=== PATIENT | female | born 1980 | race Caucasian/White ===

== ENCOUNTER 2021-01-08 20:01 | Emergency (ER) | payer SELFPAY ==
[2021-01-08 20:12] VITALS: BP 202/120; PULSE 84; RESP 16; TEMP 36.6; O2SAT 96; BMI 20.9
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
[2021-01-08 22:32] VITALS: BP 197/130; PULSE 75; RESP 18; O2SAT 99
[2021-01-08] MEDS: metoprolol tartrate 50 mg Tablet PO (22:47)
[2021-01-08] MEDS: lisinopril 10 mg Tablet 20 MG PO (22:47)
[2021-01-08 23:19] VITALS: BP 166/112; PULSE 72; RESP 18; O2SAT 99
[2021-01-09 00:01] VITALS: BP 166/112; PULSE 88; RESP 16; O2SAT 97
== END 2021-01-09 00:02 | disposition home or self-care (01) ==
PROVIDERS: Emergency Provider Emergency Medicine; PCP Family Medicine
DX: S00.83XA Contusion of other part of head, initial encounter (principal); Y04.8XXA Assault by other bodily force, initial encounter
CPT/HCPCS: 70160; 99283

== ENCOUNTER 2021-12-11 15:17 | Emergency (ER) | payer MEDICAID, SELFPAY ==
[2021-12-11 15:26] VITALS: BP 186/111; PULSE 85; RESP 18; TEMP 37.4; O2SAT 100; BMI 22.6
--- NOTE | 2021-12-11 16:36 | ED_ITS ---
HPI - Female Genitourinary General: Chief complaint: Urogenital-Female Stated complaint: urinary problem/ulcer Time Seen by Provider: 12/11/21 16:09 History of Present Illness: Date of Last Menstrual Period: 12/15/20 COUNTS INCLUDE 234 BEDS AT THE [facility] ED PFSH: Medical History (Updated 12/04/21 @ 16:05 by WILLIAM Sepulveda) Hand abrasion, infected Female Reproductive History: Date of last menstrual period: 12/15/20 Course Vital Signs: Vital signs: Vital Signs Temperature 99.3 F 12/11/21 15:26 Pulse Rate 85 12/11/21 15:26 Respiratory Rate 18 12/11/21 15:26 Blood Pressure 186/111 12/11/21 15:26 Pulse Oximetry 100 12/11/21 15:26 Discharge Plan Discharge Condition: Stable Prescriptions: No Action amlodipine 10 mg tablet PO 0RF sertraline 25 mg tablet 50 mg PO DAILY 0RF metoprolol tartrate 100 mg tablet 100 mg PO BID 0RF valacyclovir 1 gram tablet PO 0RF clonazepam 0.5 mg tablet PO 0RF lidocaine 5 % cream 1 applic topical TID PRN (Reason: pain) Qty: 30 0RF clindamycin HCl 300 mg capsule 300 mg PO TID Qty: 21 0RF sertraline [Zoloft] 50 mg tablet 50 mg PO DAILY Qty: 30 0RF ketorolac 10 mg tablet 10 mg PO TID PRN (Reason: pain) 5 Days Qty: 15 0RF lisinopril 20 mg tablet 20 mg PO DAILY Qty: 30 0RF metoprolol tartrate 75 mg tablet 75 mg PO BID Qty: 30 0RF Referrals: Tl Hanna FNP [Primary Care Provider] - Coding Level of Care Code ED Vamp Throater for Angella Madera
--- NOTE | 2021-12-11 16:53 | ED_ITS ---
HPI - General Adult General: Chief complaint: Urogenital-Female Stated complaint: urinary problem/ulcer Time Seen by Provider: 12/11/21 16:09 History of Present Illness: Patient is a 41-year-old female with a diagnosis of Bartholin cyst diagnosis on 12/05/2021 presents the emergency room for concerns of possible infection of the cyst despite being on antibiotics. Patient tells me that she went and was seen by her primary care provider with diagnosis of Bartholin cyst on 12/05. Since then, patient was given clindamycin 300 mg 3 times daily has been taking her medicine but noticed there is significant swelling and pain in that area. Patient came into the emergency room for further evaluation at this time. Patient denies any fever or chills, new vaginal drainage/vaginal bleeding, or urinary complaints. Onset:12/05/2021 Duration:ongoing Location:home Severity:moderate Associated symptoms: Deny chest pain, dyspnea, nausea, rash, palpitations or vomiting Review of Systems Const: Denies: fever(s) or chills Eyes: Denies: change in vision ENMT: Denies: mouth pain Card: Denies: chest pain or palpitations Resp: Denies: dyspnea or non-productive cough GI: Denies: abdominal pain, nausea, vomiting or diarrhea : Reports: other (+pelvic pain and R sided cyst infection); Denies: dysuria Musc: Denies: extremity pain Skin/Breast: Denies: rash or new lesions Neuro: Denies: weakness in extremities Psych: Reports: other (Normal mood) Ellis/Lymph: Denies: easy bruising [facility] ED PFSH: Medical History (Updated 12/14/21 @ 10:43 by WILLIAM Sepulveda) Hand abrasion, infected Social History (Updated 12/11/21 @ 17:08 by Jaqueline Null MD) Smoking and tobacco status: never smoked Alcohol intake: never Physical Exam Const: COMMON NORMALS: alert HENMT: COMMON NORMALS: atraumatic HEAD & SCALP: atraumatic MOUTH: moist mucous membranes not abnormal Eye: COMMON NORMALS: EOMs intact bilaterally and conjunctivae normal CONJUNCTIVA: Yes conjunctivae normal Neck/C-Spine: COMMON NORMALS: full ROM and supple Resp: COMMON NORMALS: normal respiratory effort and clear to auscultation bilaterally AUSCULTATION: clear to auscultation bilaterally Cardio: COMMON NORMALS: regular rate RATE: regular rate GI: COMMON NORMALS: Soft to palpation and non-tender PALPATION: Yes Soft to palpation : OTHER: + Exam supervised by patient's nurse. No visible Bartholin cyst. Patient is observed to have induration and swelling over lateral to the labial majoria with overlying erythema Extremity: COMMON NORMALS: full ROM Neuro: SENSORIUM/ORIENTATION: Yes alert MOTOR EXAM: No Abnormal motor strength present and Other motor observations present (no focal motor deficits) Psych: COMMON NORMALS: speech normal SPEECH: Yes normal speech MOOD & AFFECT: Yes euthymic mood Course Vital Signs: Vital signs: Vital Signs Temperature 99.3 F 12/11/21 15:26 Pulse Rate 84 12/11/21 19:04 Respiratory Rate 18 12/11/21 15:26 Blood Pressure 148/107 12/11/21 19:04 Pulse Oximetry 98 12/11/21 19:04 MDM - General Adult Medical Decision Making 41-year-old female presenting to the emergency room with concerns of groin pain. On physical exam, patient was found to have an infected labial cyst as opposed to an infected Bartholin cyst. I discussed this with Dr. Humphrey who recommended close outpatient follow-up with Bactrim. Dr. Humphrey will evaluate patient in the on the office and determine whether patient needs an I&D at this time. Do not suspect necrotizing soft tissue infection or other extensive cellulitis requiring IV antibiotics. I have given patient follow up with our case management coordinator to be seen by LIBRARY DIRECTOR for close outpatient followup. Patient aware of a call from our case management coordinator to schedule for appointment(s) and verbalizes understanding of the importance of following up. Patient is instructed to discontinue clindamyicn as it has not been working. Rx bactrim DS x 7 days Disposition: Discharge. Patient counseled regarding diagnostic impression, treatment plan. Patient given ED strict return precautions to return for continuation, worsening, or development of new symptoms. Instructed to f/u w/ Dr. Pleitez regarding symptoms today. Patient verbalized understanding. Lab Data : 12/11/21 17:15 12/11/21 17:15 Laboratory Results WBC 5.1 10^3/uL (4.0-10.0) 12/11/21 17:15 RBC 3.63 10^6/uL (4.1-5.3) L 12/11/21 17:15 Hgb 10.2 g/dL (11.5-15.3) L 12/11/21 17:15 Hct 31.7 % (37.0-47.0) L 12/11/21 17:15 MCV 87.3 fl (81-99) 12/11/21 17:15 MCH 28.1 pg (28.0-34.0) 12/11/21 17:15 MCHC 32.2 g/dL (30.0-36.0) 12/11/21 17:15 RDW 14.1 % (12.1-15.1) 12/11/21 17:15 Plt Count 232 10^3/cmm (130-400) 12/11/21 17:15 MPV 9.8 fL (7.4-10.4) 12/11/21 17:15 Neut % (Auto) 71.9 % 12/11/21 17:15 Lymph % (Auto) 11.3 % 12/11/21 17:15 [place] % (Auto) 9.1 % 12/11/21 17:15 Eos % (Auto) 6.5 % 12/11/21 17:15 Baso % (Auto) 1.0 % 12/11/21 17:15 Neut # (Auto) 3.63 10^3/uL (1.8-7.7) 12/11/21 17:15 Lymph # (Auto) 0.6 10^3/uL (0.8-4.8) L 12/11/21 17:15 [place] # (Auto) 0.5 10^3/uL (0.2-0.9) 12/11/21 17:15 Eos # (Auto) 0.3 10^3/uL (0.0-0.8) 12/11/21 17:15 Baso # (Auto) 0.1 10^3/uL (0.0-0.1) 12/11/21 17:15 Nucleated RBC % (auto) 0 % 12/11/21 17:15 Nucleated RBCs # 0.0 /100WBC 12/11/21 17:15 Sodium 137 mmol/L (136-145) 12/11/21 17:15 Potassium 4.6 mmol/L (3.5-5.1) 12/11/21 17:15 Chloride 104 mmol/L (98-107) 12/11/21 17:15 Carbon Dioxide 25 mmol/L (22-29) 12/11/21 17:15 Anion Gap 12.6 (5-19) 12/11/21 17:15 BUN 19 mg/dL (6-20) 12/11/21 17:15 Creatinine 1.3 mg/dL (0.5-0.9) H 12/11/21 17:15 GFR Calculation 44.7 mL/min (90-130) L 12/11/21 17:15 Glucose 104 mg/dL (65-115) 12/11/21 17:15 Calculated Osmolality 287 mOsm/kg (285-295) 12/11/21 17:15 Calcium 9.0 mg/dL (8.5-10.5) 12/11/21 17:15 Total Bilirubin 0.2 mg/dL (0.15-1.2) 12/11/21 17:15 AST 55 U/L (0-32) H 12/11/21 17:15 ALT 83 U/L (0-33) H 12/11/21 17:15 Alkaline Phosphatase 177 IU/L (35-105) H 12/11/21 17:15 Total Protein 7.3 g/dL (6.6-8.7) 12/11/21 17:15 Albumin 3.6 g/dL (3.5-5.2) 12/11/21 17:15 Globulin 3.7 g/dL (1.3-4.6) 12/11/21 17:15 Lipase 44 U/L (13-60) 12/11/21 17:15 Discharge Plan Discharge Patient Disposition: Home Clinical Impression: Labial cyst, Infected cyst of skin Condition: Stable Prescriptions: No Action sertraline 25 mg tablet 50 mg PO DAILY 0RF metoprolol tartrate 100 mg tablet 100 mg PO BID 0RF valacyclovir 1 gram tablet PO 0RF clonazepam 0.5 mg tablet PO 0RF sertraline [Zoloft] 50 mg tablet 50 mg PO DAILY Qty: 30 0RF lidocaine 5 % cream 1 applic topical TID PRN (Reason: pain) Qty: 30 3RF tramadol 50 mg tablet 50 mg PO Q6H PRN (Reason: pain) Qty: 14 0RF lisinopril 20 mg tablet 20 mg PO DAILY Qty: 30 0RF metoprolol tartrate 75 mg tablet 75 mg PO BID Qty: 30 0RF Discharge Orders: Discharge ED (Routine); Ordered 12/11/21 Ordered By: Jaqueline Null Referrals: Tl Hanna FNP [Primary Care Provider] - Patient Instructions: Opioid Safety Activity Restrictions/Additional Instructions: Our case management coordinator will have you follow-up with Dr. Pleitez in the next few days for labial cyst infection. You would be expected to have a phone call with our case management coordinator who will put you on the schedule. You can expect a call from us in the next 2-3 days. If you don't hear from us, call us back in the emergency room at [phone]. Please come back to the emergency room have any fever or chills, worsening pain, nausea/vomiting, or any new or concerning complaints. Coding Level of Care Code ED Fire Management Specialist for Angella Madera Exam Comprehensive
[2021-12-11 17:30] VITALS: BP 155/105; PULSE 84; O2SAT 97
[2021-12-11] MEDS: morphine 4 mg/mL SDV 1 mL IVP (17:40)
[2021-12-11 17:45] LABS: Basophils # 0.1 10^3/uL (0.0-0.1); Eosinophils # 0.3 10^3/uL (0.0-0.8); Eosinophils % 6.5 %; Hematocrit 31.7 % (37.0-47.0); Hemoglobin 10.2 g/dL (11.5-15.3); Lymphocytes # 0.6 10^3/uL (0.8-4.8); Lymphocytes % 11.3 %; Mean Corpuscular HGB Conc 32.2 g/dL (30.0-36.0); Mean Corpuscular Hemoglobin 28.1 pg (28.0-34.0); Mean Corpuscular Volume 87.3 fl (81-99); Mean Platelet Volume 9.8 fL (7.4-10.4); Monocytes # 0.5 10^3/uL (0.2-0.9); Monocytes % 9.1 %; Neutrophils # 3.63 10^3/uL (1.8-7.7); Neutrophils % 71.9 %; Nucleated Red Blood Cells % 0 %; Platelet Count 232 10^3/cmm (130-400); Red Blood Count 3.63 10^6/uL (4.1-5.3); Red Cell Distribution Width 14.1 % (12.1-15.1); White Blood Count 5.1 10^3/uL (4.0-10.0)
[2021-12-11 18:25] LABS: Alanine Aminotransferase 83 U/L (0-33); Albumin Level 3.6 g/dL (3.5-5.2); Alkaline Phosphatase 177 IU/L (35-105); Anion Gap 12.6 (5-19); Aspartate Amino Transferase 55 U/L (0-32); Blood Urea Nitrogen 19 mg/dL (6-20); Carbon Dioxide 25 mmol/L (22-29); Chloride 104 mmol/L (98-107); Globulin 3.7 g/dL (1.3-4.6); Glomerular Filtration Rate 44.7 mL/min (90-130); Glucose 104 mg/dL (65-115); Lipase 44 U/L (13-60); Osmolality Calculated 287 mOsm/kg (285-295); Potassium 4.6 mmol/L (3.5-5.1); Sodium 137 mmol/L (136-145); Total Bilirubin 0.2 mg/dL (0.15-1.2); Total Protein 7.3 g/dL (6.6-8.7)
[2021-12-11 18:30] VITALS: BP 154/102; O2SAT 97
[2021-12-11 19:04] VITALS: BP 148/107; PULSE 84; O2SAT 98
--- NOTE | 2021-12-12 13:13 | DCPLANNER ---
Addendum entered by Corinne Kan 03/19/22 14:37: Patient had a follow up appointment scheduled with [facility] - patient did attend appointment. Addendum entered by Corinne Kan 12/21/21 10:30: Patient has a follow up appointment scheduled for Tuesday, December 28, 2021 at 3:[address] Mcintosh at [facility]. Clinic will call patient with appointment information. Original Note: manager of organizational development had message to schedule a follow up appointment for patient with [facility]. manager of organizational development sent patients information to the front office staff at [facility]. Patients information will be printed and reviewed. Clinic will call patient with appointment information.
== END 2021-12-11 19:06 | disposition home or self-care (01) ==
PROVIDERS: Emergency Provider Emergency Medicine; PCP Nurse Practitioner Family
DX: N90.7 Vulvar cyst (principal)
CPT/HCPCS: 80053; 83690; 85025; 96374; 96375; 99284; J2270

== ENCOUNTER 2021-12-27 03:21 | Emergency (ER) | payer MEDICAID, SELFPAY ==
--- NOTE | 2021-12-27 03:34 | ED_ITS ---
HPI - Female Genitourinary General: Chief complaint: General Medical Stated complaint: vaginal swelling Time Seen by Provider: 12/27/21 03:24 Source: patient and EMS Mode of arrival: EMS Limitations: no limitations History of Present Illness: 41-year-old female states that she has had a labial cyst or abscess over the last 2 to 3 weeks she was seen here 2 weeks ago she states they did not drain it I set her up appointment with OB to have it drained which is tomorrow she states that she cannot take the pain anymore and that its became much more swollen and painful states pain is currently 9 out of 10 she has had drainage from it. Denies any fevers. Associated symptoms: Deny abdominal pain, headache(s) or nausea Review of Systems Const: Denies: fever(s), chills, body aches or change in appetite Eyes: Denies: blurry vision or eye discomfort ENMT: Denies: throat pain or dental pain Card: Denies: chest pain Resp: Denies: dyspnea GI: Denies: abdominal pain, nausea, vomiting or diarrhea : Reports: pelvic pain Musc: Denies: neck pain or back pain Skin/Breast: Denies: rash Neuro: Denies: headache(s) Psych: Denies: depression Ellis/Lymph: Denies: easy bruising All/Imm: Denies: urticaria PFSH ED PFSH: Medical History Hand abrasion, infected Social History Smoking and tobacco status: never smoked Alcohol intake: never Physical Exam Const: COMMON NORMALS: no acute distress, patient oriented x3 and healthy appearing HENMT: COMMON NORMALS: normocephalic and atraumatic HEAD & SCALP: normocephalic and atraumatic Eye: COMMON NORMALS: Equal, round and reactive pupils present and EOMs intact bilaterally PUPIL: Yes Equal, round and reactive pupils present Neck/C-Spine: COMMON NORMALS: full ROM and supple Chest: COMMONS NORMALS: normal inspection of the chest and normal palpation of entire chest wall Resp: COMMON NORMALS: normal respiratory effort, No retractions, No use of accessory muscles and clear to auscultation bilaterally AUSCULTATION: clear to auscultation bilaterally Cardio: COMMON NORMALS: regular rate, regular rhythm and No murmurs present (Cardio) RATE: regular rate RHYTHM: regular rhythm GI: COMMON NORMALS: Normal to inspection, nondistended, normoactive bowel sounds present, Soft to palpation, non-tender and no masses PALPATION: Yes Soft to palpation : OTHER: Swelling and tenderness to right labia multiple nontender sores to labia Extremity: COMMON NORMALS: normal to inspection and full ROM Neuro: COMMON NORMALS: patient oriented x3, moves all extremities and no focal motor deficits Psych: COMMON NORMALS: mental status grossly normal, Normal thought process present and cooperative THOUGHT PROCESS: Normal thought process present Skin: COMMON NORMALS: no rashes or lesions noted and no wounds GENERAL SKIN EXAM: no rashes or lesions noted Procedures Abscess I/D Site: other (labial) Side (if applicable): right Local Anesthetic: lidocaine 1% Amount of anesthesia used (mL): 8 Technique: needle aspiration Amount of fluid expressed (mL): 0 Course Vital Signs: Vital signs: Vital Signs Temperature 97.3 F L 12/27/21 03:35 Pulse Rate 109 H 12/27/21 03:35 Respiratory Rate 21 H 12/27/21 03:45 Blood Pressure 184/111 12/27/21 03:35 Pulse Oximetry 99 12/27/21 03:35 MDM - Female Medical Decision Making Patient presents here with pain and swelling to her vagina she did have quite a bit of swelling to the right labia I numbed it and made a needle incision to see if there is any drainage and there was not a full incision was not made she does have multiple lesions over her vagina does not appear to be herpes. She does have an appoint with OB and is to follow-up as scheduled tomorrow with OB for further evaluation. Lab Data : 12/27/21 03:50 Laboratory Results WBC 4.8 10^3/uL (4.0-10.0) 12/27/21 03:50 RBC 3.46 10^6/uL (4.1-5.3) L 12/27/21 03:50 Hgb 9.5 g/dL (11.5-15.3) L 12/27/21 03:50 Hct 28.9 % (37.0-47.0) L 12/27/21 03:50 MCV 83.5 fl (81-99) 12/27/21 03:50 MCH 27.5 pg (28.0-34.0) L 12/27/21 03:50 MCHC 32.9 g/dL (30.0-36.0) 12/27/21 03:50 RDW 13.8 % (12.1-15.1) 12/27/21 03:50 Plt Count 336 10^3/cmm (130-400) 12/27/21 03:50 MPV 9.5 fL (7.4-10.4) 12/27/21 03:50 Neut % (Auto) 53.1 % 12/27/21 03:50 Lymph % (Auto) 24.4 % 12/27/21 03:50 [place] % (Auto) 12.8 % 12/27/21 03:50 Eos % (Auto) 8.2 % 12/27/21 03:50 Baso % (Auto) 1.1 % 12/27/21 03:50 Neut # (Auto) 2.52 10^3/uL (1.8-7.7) 12/27/21 03:50 Lymph # (Auto) 1.2 10^3/uL (0.8-4.8) 12/27/21 03:50 [place] # (Auto) 0.6 10^3/uL (0.2-0.9) 12/27/21 03:50 Eos # (Auto) 0.4 10^3/uL (0.0-0.8) 12/27/21 03:50 Baso # (Auto) 0.1 10^3/uL (0.0-0.1) 12/27/21 03:50 Nucleated RBC % (auto) 0 % 12/27/21 03:50 Nucleated RBCs # 0.0 /100WBC 12/27/21 03:50 Discharge Plan Discharge Patient Disposition: Home Clinical Impression: Labia irritation Condition: Stable Prescriptions: New hydrocodone-acetaminophen 5-325 mg tablet 1 tab PO Q6H PRN (Reason: pain) Qty: 14 0RF No Action sertraline 25 mg tablet 50 mg PO DAILY 0RF metoprolol tartrate 100 mg tablet 100 mg PO BID 0RF valacyclovir 1 gram tablet PO 0RF clonazepam 0.5 mg tablet PO 0RF sertraline [Zoloft] 50 mg tablet 50 mg PO DAILY Qty: 30 0RF lidocaine 5 % cream 1 applic topical TID PRN (Reason: pain) Qty: 30 3RF tramadol 50 mg tablet 50 mg PO Q6H PRN (Reason: pain) Qty: 14 0RF lisinopril 20 mg tablet 20 mg PO DAILY Qty: 30 0RF metoprolol tartrate 75 mg tablet 75 mg PO BID Qty: 30 0RF Discharge Orders: Discharge ED (Routine); Ordered 12/27/21 Ordered By: Georgia Swartz Referrals: Tl Hanna FNP [Primary Care Provider] - Lorraine Humphrey MD [Physician] - 1-3 days Discharge Diet: Advance as tolerated Discharge Activity: Resume usual activity Coding Level of Care Code ED Director Of Maintenance for Chg Fwd Exam Comprehensive
[2021-12-27 03:35] VITALS: BP 184/111; PULSE 109; RESP 17; TEMP 36.3; O2SAT 99; BMI 21.0
[2021-12-27 03:45] VITALS: RESP 21
[2021-12-27] MEDS: HYDROmorphone 1 mg/mL INJ 1 mL IVP (03:45)
[2021-12-27] MEDS: vancomycin 1,000 MG in sodium chloride 0.9% 250 ML 250 MG IV (03:45)
[2021-12-27] MEDS: ondansetron 2 mg/ML SDV 2 mL 4 MG IVP (03:45)
[2021-12-27 04:16] LABS: Basophils # 0.1 10^3/uL (0.0-0.1); Basophils % 1.1 %; Eosinophils # 0.4 10^3/uL (0.0-0.8); Eosinophils % 8.2 %; Hematocrit 28.9 % (37.0-47.0); Hemoglobin 9.5 g/dL (11.5-15.3); Lymphocytes # 1.2 10^3/uL (0.8-4.8); Lymphocytes % 24.4 %; Mean Corpuscular HGB Conc 32.9 g/dL (30.0-36.0); Mean Corpuscular Hemoglobin 27.5 pg (28.0-34.0); Mean Corpuscular Volume 83.5 fl (81-99); Mean Platelet Volume 9.5 fL (7.4-10.4); Monocytes # 0.6 10^3/uL (0.2-0.9); Monocytes % 12.8 %; Neutrophils # 2.52 10^3/uL (1.8-7.7); Neutrophils % 53.1 %; Nucleated Red Blood Cells % 0 %; Platelet Count 336 10^3/cmm (130-400); Red Blood Count 3.46 10^6/uL (4.1-5.3); Red Cell Distribution Width 13.8 % (12.1-15.1); White Blood Count 4.8 10^3/uL (4.0-10.0)
[2021-12-27 04:26] LABS: Slide Review Slide Review Perform
[2021-12-27 05:38] VITALS: BP 187/118; PULSE 101; RESP 17; O2SAT 99
== END 2021-12-27 05:44 | disposition home or self-care (01) ==
PROVIDERS: Emergency Provider Emergency Medicine; PCP Nurse Practitioner Family
DX: N90.89 Other specified noninflammatory disorders of vulva and perineum (principal)
CPT/HCPCS: 56405; 85025; 96365; 96375; 99284; J1170; J2405; J3370; J7050

== ENCOUNTER 2021-12-27 09:02 | Emergency (ER) | payer MEDICAID, SELFPAY ==
[2021-12-27 09:17] VITALS: BP 197/136; PULSE 120; RESP 18; TEMP 36.4; O2SAT 100; BMI 22.6
[2021-12-27 09:49] VITALS: PULSE 108; RESP 24; O2SAT 100
--- NOTE | 2021-12-27 10:49 | ED_ITS ---
HPI - Female Genitourinary General: Chief complaint: Urogenital-Female Stated complaint: pain Time Seen by Provider: 12/27/21 09:04 Source: patient Mode of arrival: ambulatory Limitations: no limitations History of Present Illness: 41-year-old female presents emergency room with complaints of labial swelling and discomfort. She was seen just a few hours ago they made an attempt to incise and drain but there was no abscess present. She reports the left labia swollen and painful. MD elicited complaint: genital rash (Labial swelling) Onset (ago): week(s) Location of symptoms: external genitalia Quality of pain: burning Consistency: constant Vaginal discharge: none Vaginal bleeding: none Urinary symptoms: Dysuria Associated symptoms: Reports no associated symptoms; Deny abdominal pain or nausea Review of Systems Const: Denies: fever(s), chills, body aches, change in appetite, fatigue or malaise Card: Denies: chest pain, edema, dyspnea on exertion or orthopnea Resp: Denies: dyspnea, productive cough or non-productive cough GI: Denies: abdominal pain, nausea, vomiting, hematemesis, coffee ground emesis, diarrhea, constipation, bloating, hematochezia or melena : Reports: dysuria; Denies: flank pain, difficulty voiding, urinary frequency or urinary urgency PFS ED PFSH: Medical History Hand abrasion, infected Social History Smoking and tobacco status: never smoked Alcohol intake: never Physical Exam Const: COMMON NORMALS: no acute distress GENERAL APPEARANCE: cooperative and comfortable ORIENTATION/CONSCIOUSNESS: Yes awake, Yes oriented to person, Yes oriented to place and Yes oriented to time HENMT: COMMON NORMALS: normocephalic, atraumatic and hearing grossly normal bilaterally HEAD & SCALP: normocephalic and atraumatic Neck/C-Spine: COMMON NORMALS: no JVD Resp: COMMON NORMALS: normal respiratory effort, No retractions, No use of accessory muscles and clear to auscultation bilaterally AUSCULTATION: clear to auscultation bilaterally Cardio: COMMON NORMALS: no JVD, regular rate, regular rhythm and No murmurs present (Cardio) RATE: regular rate RHYTHM: regular rhythm GI: COMMON NORMALS: Soft to palpation and No hepatosplenomegaly present AUSCULTATION: Yes normoactive bowel sounds PALPATION: Yes Soft to palpation, No Tenderness to palpation present (GI), No Guarding due to palpation present (GI) and Yes No hepatosplenomegaly present : OTHER: With nurse present patient placed in dorsolithotomy position exam the perineum and the labia the right labia is markedly swollen there is an incision site from previous visit is not actively bleeding there is no drainage there is a superficial redness has some erosions consistent with herpetic lesion there is also significant amount of condyloma present around the vaginal introitus and the rectum. No vaginal discharge noted speculum exam was not done due to patient's discomfort. Neuro: SENSORIUM/ORIENTATION: Yes oriented to person, Yes oriented to place and Yes oriented to time Skin: COMMON NORMALS: no rashes or lesions noted GENERAL SKIN EXAM: no rashes or lesions noted Course Vital Signs: Vital signs: Vital Signs Temperature 97.6 F 12/27/21 09:17 Pulse Rate 127 H 12/27/21 11:10 Respiratory Rate 24 H 12/27/21 09:49 Blood Pressure 185/136 12/27/21 11:10 Pulse Oximetry 100 12/27/21 11:10 MDM - Female Medical Decision Making Start valacyclovir discharge home follow-up with [facility] as scheduled tomorrow. Medical Records I reviewed the patient's medical records. Lab Data I reviewed the patient's lab results. Discharge Plan Discharge Patient Disposition: Home Clinical Impression: Genital herpes, Labia enlarged, Condyloma Condition: Stable Prescriptions: New valacyclovir 1 gram tablet 1,000 mg PO TID 7 Days Qty: 21 0RF No Action sertraline 25 mg tablet 50 mg PO DAILY 0RF metoprolol tartrate 100 mg tablet 100 mg PO BID 0RF valacyclovir 1 gram tablet PO 0RF clonazepam 0.5 mg tablet PO 0RF sertraline [Zoloft] 50 mg tablet 50 mg PO DAILY Qty: 30 0RF lidocaine 5 % cream 1 applic topical TID PRN (Reason: pain) Qty: 30 3RF tramadol 50 mg tablet 50 mg PO Q6H PRN (Reason: pain) Qty: 14 0RF lisinopril 20 mg tablet 20 mg PO DAILY Qty: 30 0RF metoprolol tartrate 75 mg tablet 75 mg PO BID Qty: 30 0RF hydrocodone-acetaminophen 5-325 mg tablet 1 tab PO Q6H PRN (Reason: pain) Qty: 14 0RF Discharge Orders: Discharge ED (Routine); Ordered 12/27/21 Ordered By: Sumeet Fierro Referrals: Tl Hanna FNP [Primary Care Provider] - Discharge Diet: Usual diet Discharge Activity: Resume usual activity Patient Instructions: Opioid Safety Coding Level of Care Code ED [facility] Dresser for Chg Fwd Exam Detailed
[2021-12-27 11:10] VITALS: BP 185/136; PULSE 127; O2SAT 100
== END 2021-12-27 11:05 | disposition home or self-care (01) ==
PROVIDERS: Emergency Provider Family Medicine; PCP Nurse Practitioner Family
DX: A60.09 Herpesviral infection of other urogenital tract (principal); A63.0 Anogenital (venereal) warts
CPT/HCPCS: 99283

== ENCOUNTER → 2022-03-01 10:12 | Outpatient (BNVA) | payer MEDICAID, SELFPAY | PROVIDERS: PCP Nurse Practitioner Family; Visit Provider Family Medicine | DX: Z02.83 Encounter for blood-alcohol and blood-drug test (principal); R10.11 Right upper quadrant pain; L02.91 Cutaneous abscess, unspecified; F41.9 Anxiety disorder, unspecified; F10.10 Alcohol abuse, uncomplicated; Z87.898 Personal history of other specified conditions; Z87.19 Personal history of other diseases of the digestive system; I10 Essential (primary) hypertension; Z86.2 Personal history of diseases of the blood and blood-forming organs and certain disorders involving the immune mechanism; Z71.41 Alcohol abuse counseling and surveillance of alcoholic | CPT/HCPCS: 80307 ==

== ENCOUNTER → 2022-03-05 12:13 | Outpatient (BNVA) | payer MEDICAID, SELFPAY | PROVIDERS: PCP Nurse Practitioner Family; Visit Provider Family Medicine | DX: R10.11 Right upper quadrant pain (principal); I10 Essential (primary) hypertension; Z86.2 Personal history of diseases of the blood and blood-forming organs and certain disorders involving the immune mechanism; Z87.898 Personal history of other specified conditions; Z87.19 Personal history of other diseases of the digestive system | CPT/HCPCS: 80053; 80074; 82728; 83540; 83690; 83735; 85025; 87806 ==

== ENCOUNTER → 2022-03-07 04:14 | Outpatient (BNVA) | payer MEDICAID, SELFPAY | PROVIDERS: PCP Nurse Practitioner Family; Visit Provider Family Medicine | DX: R10.11 Right upper quadrant pain (principal); I10 Essential (primary) hypertension; Z86.2 Personal history of diseases of the blood and blood-forming organs and certain disorders involving the immune mechanism; Z87.19 Personal history of other diseases of the digestive system; Z87.898 Personal history of other specified conditions | CPT/HCPCS: 87522 ==

== ENCOUNTER → 2022-03-27 15:17 | Outpatient (BNVA) | payer MEDICAID, SELFPAY | PROVIDERS: PCP Nurse Practitioner Family; Visit Provider Family Medicine | DX: Z20.822 Contact with and (suspected) exposure to COVID-19 (principal); Z02.83 Encounter for blood-alcohol and blood-drug test; Z71.41 Alcohol abuse counseling and surveillance of alcoholic; B19.20 Unspecified viral hepatitis C without hepatic coma; G47.00 Insomnia, unspecified; Z86.2 Personal history of diseases of the blood and blood-forming organs and certain disorders involving the immune mechanism; Z87.19 Personal history of other diseases of the digestive system | CPT/HCPCS: 80307; 87426 ==

== ENCOUNTER → 2022-03-28 10:03 | Outpatient (BNVA) | payer MEDICAID, SELFPAY | PROVIDERS: PCP Nurse Practitioner Family; Visit Provider Family Medicine | DX: B19.20 Unspecified viral hepatitis C without hepatic coma (principal); Z71.41 Alcohol abuse counseling and surveillance of alcoholic | CPT/HCPCS: 80053; 86803; 87522; 87902 ==

== ENCOUNTER → 2024-03-18 12:19 | Outpatient (BNVA) | payer OTHER, SELFPAY | PROVIDERS: PCP Nurse Practitioner Family; Visit Provider Nurse Practitioner Family | DX: Z79.899 Other long term (current) drug therapy (principal); I10 Essential (primary) hypertension; B19.20 Unspecified viral hepatitis C without hepatic coma; F41.9 Anxiety disorder, unspecified; D64.9 Anemia, unspecified; R53.83 Other fatigue | CPT/HCPCS: 80053; 80061; 80074; 81003; 82043; 82607; 82728; 82746; 83036; 84207; 84443; 85025; 87522 ==

== ENCOUNTER → 2024-03-25 14:19 | Outpatient (BNVA) | payer OTHER, SELFPAY | PROVIDERS: PCP Nurse Practitioner Family; Visit Provider Nurse Practitioner Family | DX: Z79.899 Other long term (current) drug therapy (principal); I10 Essential (primary) hypertension; B19.20 Unspecified viral hepatitis C without hepatic coma; F41.9 Anxiety disorder, unspecified; D64.9 Anemia, unspecified; N18.9 Chronic kidney disease, unspecified | CPT/HCPCS: 80053; 81003; 82043 ==

== ENCOUNTER → 2025-02-28 10:49 | Outpatient (BNVA) | payer OTHER, SELFPAY | PROVIDERS: PCP Nurse Practitioner Family; Visit Provider Nurse Practitioner Family | DX: I10 Essential (primary) hypertension (principal); N18.9 Chronic kidney disease, unspecified; D64.9 Anemia, unspecified; R53.83 Other fatigue; E55.9 Vitamin D deficiency, unspecified | CPT/HCPCS: 80053; 80061; 81003; 82306; 82570; 82607; 82728; 82746; 83036; 83550; 83735; 84100; 84156; 84439; 84443; 85025; 87086 ==

== ENCOUNTER → 2025-03-09 11:54 | Outpatient (BNVA) | payer OTHER, SELFPAY | PROVIDERS: PCP Nurse Practitioner Family; Visit Provider Nurse Practitioner Family | DX: N18.9 Chronic kidney disease, unspecified (principal) | CPT/HCPCS: 80069 ==

== ENCOUNTER → 2025-06-21 10:35 | Outpatient (BNVA) | payer OTHER, SELFPAY | PROVIDERS: PCP Nurse Practitioner Family; Visit Provider Nurse Practitioner Family | DX: I10 Essential (primary) hypertension (principal); F41.9 Anxiety disorder, unspecified; E55.9 Vitamin D deficiency, unspecified | CPT/HCPCS: 81003; 82570; 84156; 85025 ==